=== PATIENT | female | born 1945 | race Hispanic/Latino ===

== ENCOUNTER → 2019-05-05 | Outpatient (CLI) | payer OTHER, SELFPAY | END | disposition home or self-care (01) | LOC: OIH 15:04 | PROVIDERS: ATTEND Internal Medicine Cardiovascular Disease | DX: Z13.6 Encounter for screening for cardiovascular disorders (principal) | CPT/HCPCS: 75571 ==

== ENCOUNTER → 2019-05-16 | Outpatient (CLI) | payer OTHER, MEDICARE | END | disposition home or self-care (01) | LOC: SHCH 10:39 | PROVIDERS: ATTEND Internal Medicine Cardiovascular Disease | DX: I11.9 Hypertensive heart disease without heart failure (principal); I35.8 Other nonrheumatic aortic valve disorders | CPT/HCPCS: 93306 ==

== ENCOUNTER → 2019-07-10 | Outpatient (CLI) | payer OTHER, MEDICARE ==
[~2019-07-10] VITALS: Ht 157.5 cm; Wt 62.6 kg
[~2019-07-10] MED LIST: REGADENOSON 0.4 MG/5 ML PF SYG IVP SCH
== END | disposition home or self-care (01) ==
LOC: SHCH 08:09
PROVIDERS: ATTEND Internal Medicine Cardiovascular Disease
DX: I10 Essential (primary) hypertension (principal)
CPT/HCPCS: 78452; 93017; 96374; A9500 ×2; J2785

== ENCOUNTER → 2021-04-15 | Outpatient (CLI) | payer OTHER, MEDICARE | END | disposition home or self-care (01) | LOC: RAH 09:08 | PROVIDERS: ATTEND Internal Medicine | DX: I65.23 Occlusion and stenosis of bilateral carotid arteries (principal) | CPT/HCPCS: 93880 ==

== ENCOUNTER → 2021-09-02 | Outpatient (CLI) | payer OTHER | END | disposition home or self-care (01) | LOC: OIH 12:37 | PROVIDERS: ATTEND Internal Medicine Cardiovascular Disease | DX: Z13.6 Encounter for screening for cardiovascular disorders (principal); I25.10 Atherosclerotic heart disease of native coronary artery without angina pectoris; I51.5 Myocardial degeneration | CPT/HCPCS: 75571 ==

== ENCOUNTER → 2021-10-07 | Outpatient (CLI) | payer OTHER, MEDICARE ==
[~2021-10-07] VITALS: Ht 157.5 cm; Wt 62.1 kg
== END | disposition home or self-care (01) ==
LOC: SHCH 08:25
PROVIDERS: ATTEND Internal Medicine Cardiovascular Disease
DX: I65.23 Occlusion and stenosis of bilateral carotid arteries (principal)
CPT/HCPCS: 78452; 93017; 96374; A9500 ×2; J2785

== ENCOUNTER → 2024-10-31 | Outpatient (CLI) | payer OTHER, MEDICARE ==
--- NOTE | 2024-11-03 08:52 | HMCSR ---
APPROVED REPORT EXAM: Two-dimensional and M-mode echocardiogram with Doppler and color Doppler. INDICATION ICD: Essential (primary) Hypertension I10.0 RISK FACTORS Hypertension Hyperlipidemia Diabetes 2D Dimensions RVDd3.3 cmLVEF(%)60.0 (>50%)LVED Vol(simp.)73.0 mL IVSd1.3 (0.7-1.1cm)FS(%)31 %LVES Vol(simp.)32.0 mL LVDd3.8 (3.8-5.6cm)Ao Root(2D)2.6 (2.0-3.7cm)LVEF(%, simp.)57 % PWd1.2 (0.7-1.1cm)LVOT diam2.0 (1.8-2.4cm)LA ESV INDEX (BP)27.69 mL/m2 LVDs2.5 (2.5-4.0cm)IVC diam1.5 cm M-Mode Dimensions EPSS1.1 cm Aortic Valve AoV Vmax2.3 m/Scott Peak GR21.9 mmHgLVOT Vmax0.9 m/s AoV VTI0.5 mAo Mean GR12.5 mmHgLVOT VTI0.20 m STEPHANIE (VMAX)1.4 cm2AVA (VTI) 1.4 cm2 Mitral Valve MV E Vmax93.2 cm/sDECEL Nhyl271 msMV Peak GR10 mmHg MV A Nhgt119.3 cm/sP 1/2 T41 msMV Mean GR4 mmHg E/A ratio0.6MVA (PHT)5.4 cm2MVA (VTI)2.1 cm2 MR Max PG41 mmHg TDI E/E' Tzfesd88.6E/E' Tjytqao53.3 Pulmonary Valve PV Vmax0.9 m/sPV VTI0.16 mPV Mean GR2 mmHg PV Peak GR3.0 mmHg Tricuspid Valve TR Vmax2.3 m/sRAP (EST) 3 luOgVXIP68.7 mmHg TR Peak GR21.7 mmHg Left Ventricle Left ventricular cavity size is normal. There is normal LV segmental wall motion. There is mild anita ntric left ventricular hypertrophy. LVEF is 55-60%. No left ventricle thrombus noted on this study. S tage I diastolic dysfunction. Right Ventricle Right ventricle is within normal limits. Right ventricular systolic function appears normal. Atria The left atrial size is normal. The right atrium size appears normal. Aortic Valve The aortic valve is moderately sclerotic, with restricted leaflet excursions. Aortic valve is trileaf let. No aortic regurgitation is present. Calculated aortic valve area is 1.4 cm2 with maximum pressur e gradient of 21.9 mmHg and mean pressure gradient of 12.50mmHg, consistent with mild to moderate aor tic stenosis. Mitral Valve Mitral annular calcification is mild to moderate. Mitral valve leaflets are calcified and exhibit res tricted excursion. Mitral regurgitation is trace. Despite the absence of mitral stenosis by pressure 1/2 time measurements, the decreased leaflet excursin is worrisome for some degree of mitral stenosis . Tricuspid Valve The tricuspid valve leaflets appear normal. There is trace tricuspid regurgitation. Pulmonic Valve Pulmonic valve is not well visualized. There is no pulmonic valvular regurgitation. Great Vessels The aortic root is normal in size. IVC is normal in size and collapses >50% with inspiration. Pericardium No pericardial effusion. Pericardium appears moderately thickened. Conclusion Left ventricular cavity size is normal. There is mild concentric left ventricular hypertrophy. LVEF is 55-60%. Stage I diastolic dysfunction. Right ventricle is within normal limits. The left atrial size is normal. The aortic valve is moderately sclerotic, with restricted leaflet excursions. Aortic valve is trileaflet. No aortic regurgitation is present. Calculated aortic valve area is 1.4 cm2 with maximum pressure gradient of 21.9 mmHg and mean pressure gradient of 12.50mmHg, consistent with mild to moderate aortic stenosis. Mitral annular calcification is mild to moderate. Mitral valve leaflets are calcified and exhibit restricted excursion. Mitral regurgitation is trace. Despite the absence of mitral stenosis by pressure 1/2 time measurements, the decreased leaflet excur sin is worrisome for some degree of mitral stenosis. There is trace tricuspid regurgitation. There is no pulmonic valvular regurgitation. The aortic root is normal in size. IVC is normal in size and collapses >50% with inspiration. No pericardial effusion. Pericardium appears moderately thickened.
--- NOTE | 2024-11-03 09:00 | HMCSR ---
APPROVED REPORT Laterality: Bilateral Indications HTN Doppler Spectral Velocity Analysis PSV / EDVPSV / EDV ECA (R) 141 / cm/sECA (L) 129 / cm/s dICA (R) 120 / 40 cm/sdICA (L) 118 / 40 cm/s Leila (R) 117 / 38 cm/smICA (L) 115 / 40 cm/s pICA (R) 103 / 31 cm/spICA (L) 74 / 22 cm/s dCCA (R) 73 / 18 cm/sdCCA (L) 75 / 21 cm/s mCCA (R) 66 / 15 cm/smCCA (L) 90 / 29 cm/s pCCA (R) 70 / 16 cm/spCCA (L) 83 / 23 cm/s Vert (R) 46 / cm/sVert (L) 57 / cm/s Subl. (R) 103 / cm/sSubl. (L) 176 / cm/s ICA/CCA 1.64ICA/CCA 1.31 Technologist Impression Minimal plaque noted in the bilateral carotids, without hemodynamic significance. Bilateral vertebral arteries appear antegrade. Conclusion Minimal plaque noted in the bilateral carotids, without hemodynamic significance. Bilateral vertebral arteries appear antegrade. Conclusion Minimal plaque noted in the bilateral carotids, without hemodynamic significance. Bilateral vertebral arteries appear antegrade.
== END | disposition home or self-care (01) ==
LOC: SHCH 08:18
PROVIDERS: ATTEND Internal Medicine Cardiovascular Disease
DX: I08.0 Rheumatic disorders of both mitral and aortic valves (principal); I65.23 Occlusion and stenosis of bilateral carotid arteries; I13.10 Hypertensive heart and chronic kidney disease without heart failure, with stage 1 through stage 4 chronic kidney disease, or unspecified chronic kidney disease; E11.22 Type 2 diabetes mellitus with diabetic chronic kidney disease; N18.30 Chronic kidney disease, stage 3 unspecified; K21.9 Gastro-esophageal reflux disease without esophagitis; E78.5 Hyperlipidemia, unspecified
CPT/HCPCS: 93306; 93880

== ENCOUNTER → 2024-11-07 | Outpatient (CLI) | payer OTHER, MEDICARE ==
[2024-11-07 12:41] LABS: T4 (THYROXINE) 6.5 ug/dL (4.7-13.3); THYROID STIMULATING HORMONE 3.23 uIU/mL (0.36-3.74)
== END | disposition home or self-care (01) ==
LOC: LAB 09:11
PROVIDERS: ATTEND Internal Medicine Cardiovascular Disease
DX: I10 Essential (primary) hypertension (principal)
CPT/HCPCS: 36415; 84436; 84443; 84479